=== PATIENT | male | born 1990 | race Asian ===

== ENCOUNTER 2017-03-06 18:07 | Emergency (ER) | payer SELFPAY ==
[2017-03-06] MEDS ORDERED: PREDNISONE 20 MG TABLET PO ONE (18:32)
[2017-03-06] MEDS ORDERED: LORATADINE 10 MG TABLET PO ONE (18:32)
[2017-03-06] MEDS ORDERED: FAMOTIDINE 20 MG TABLET PO ONE (18:32)
--- NOTE | 2017-03-06 18:37 | ER Document Report ---
HPI - HPI Patient complains to provider of: Allergic reaction Onset: Just prior to arrival Onset/Duration: Sudden Quality of pain: Burning Severity: Moderate Pain Level: 3 Context: Patient states he was bitten on his right foot multiple times by fire ants. Patient broke out in hives, EMS was called to the scene. Benadryl IV was given , but patient was brought to the emergency room by POV. Patient is sleepy, but denies difficulty breathing or swallowing. Patient and family state he has never had this kind of reaction in the past. Associated Symptoms: None Exacerbated by: Denies Relieved by: Denies Similar symptoms previously: No Recently seen / treated by doctor: No - ROS ROS below otherwise negative: Yes Systems Reviewed and Negative: Yes All other systems reviewed and negative - CONSTITUTIONAL Constitutional: DENIES: Fever - EENT EENT: DENIES: Congestion - NEURO Neurology: DENIES: Headache - CARDIOVASCULAR Cardiovascular: DENIES: Chest pain - RESPIRATORY Respiratory: DENIES: Trouble Breathing - GASTROINTESTINAL Gastrointestinal: DENIES: Abdominal Pain - URINARY Urinary: DENIES: Dysuria - MUSCULOSKELETAL Musculoskeletal: REPORTS: Extremity pain - Right foot - DERM Skin Color: Erythema Skin Problems: Rash Past Medical History - General Information source: Patient - Social History Smoking Status: Never Smoker Frequency of alcohol use: Occasional Drug Abuse: None Lives with: Family Family History: Reviewed & Not Pertinent Patient has suicidal ideation: No Patient has homicidal ideation: No - Medical History Medical History: Negative Surgical Hx: Negative Vertical Provider Document - CONSTITUTIONAL Agree With Documented VS: Yes Exam Limitations: No Limitations General Appearance: WD/WN, No Apparent Distress - INFECTION CONTROL TRAVEL OUTSIDE OF THE [place] IN LAST 30 DAYS: No - HEENT HEENT: Atraumatic, Normal ENT Exam, Normocephalic Notes: Patient groggy from IV Benadryl that was given by EMS. - NECK Neck: Normal Inspection, Supple - RESPIRATORY Respiratory: Breath Sounds Normal, No Respiratory Distress O2 Sat by Pulse Oximetry: 100 - CARDIOVASCULAR Cardiovascular: Regular Rate, Regular Rhythm - GI/ABDOMEN Gastrointestinal: Abdomen Soft, Abdomen Non-Tender - MUSCULOSKELETAL/EXTREMETIES Musculoskeletal/Extremeties: MAEW - NEURO Level of Consciousness: Awake, Appropriate - DERM Integumentary: Warm, Dry, Rash - Patient has multiple bites to right foot. Patient has scattered hives all over body. Course - Re-evaluation Re-evalutation: 03/06/17 19:13 Evaluated after medications given. Hives are greatly reduced and fading. Patient states he is no longer itching. - Vital Signs Vital signs: Temp Pulse Resp BP Pulse Ox 98.2 F 93 16 112/88 H 100 03/06/17 18:11 03/06/17 18:11 03/06/17 18:11 03/06/17 18:11 03/06/17 18:11 Discharge - Discharge Clinical Impression: Hives Fire ant bite Qualifiers: Encounter type: initial encounter Injury intent: accidental or unintentional Qualified Code(s): T63.421A - Toxic effect of venom of ants, accidental ( unintentional), initial encounter Condition: Good Disposition: HOME, SELF-CARE Additional Instructions: Begin prednisone taper tomorrow morning. You have already been given a dose for today in the emergency room. OTC Pepcid 20 mg every 12 hours for itching, you have been given a dose in the emergency room OTC Claritin or Zyrtec 10 mg daily for allergic reaction. May take Benadryl 1- 2 tabs every 4-6 hours as needed for breakthrough itching. Return to the emergency room if symptoms worsen or call 911 for EMS Prescriptions: Prednisone [Deltasone 10 mg Tablet] 10 mg PO ASDIR PRN #21 tablet PRN Reason:
[2017-03-06 19:45] VITALS: BP 113/74
== END 2017-03-06 19:45 | disposition home or self-care (01) ==
LOC: ER 18:07
DX: L50.9 Urticaria, unspecified (principal); T63.421A Toxic effect of venom of ants, accidental (unintentional), initial encounter
CPT/HCPCS: 99283; J7512

== ENCOUNTER 2017-03-31 10:31 | Emergency (ER) | payer SELFPAY ==
--- NOTE | 2017-03-31 11:21 | ER Document Report ---
ED Medical Screen (RME) - General Chief Complaint: Lower Abdominal Pain Stated Complaint: ABDOMINAL PAIN Time Seen by Provider: 03/31/17 11:18 Notes: A 7-year-old male patient seen here on 03/06/2017 after suffering fire ant bites to the right foot. He reports sometime after that he developed right lower quadrant abdominal pain going into the right testicle. He denies swelling. States it feels like the blood flow is not enough. There is no referral pain into the right flank. There is some discomfort with urination. I have greeted and performed a rapid initial assessment of this patient. A comprehensive ED assessment and evaluation of the patient, analysis of test results and completion of the medical decision making process will be conducted by additional ED providers. TRAVEL OUTSIDE OF THE [place] IN LAST 30 DAYS: No - Related Data Allergies/Adverse Reactions: No Known Allergies Allergy (Verified 03/31/17 11:08) Home Medications: Current Home Medications No Home Medications 03/31/17 [History] Past Medical History Renal/ Medical History: Denies: Hx Peritoneal Dialysis Physical Exam - Vital signs Vitals: Temp Pulse Resp BP Pulse Ox 98.1 F 73 18 147/75 H 100 03/31/17 11:10 03/31/17 11:10 03/31/17 11:10 03/31/17 11:10 03/31/17 11:10 Course - Vital Signs Vital signs: Temp Pulse Resp BP Pulse Ox 98.1 F 73 18 147/75 H 100 03/31/17 11:10 03/31/17 11:10 03/31/17 11:10 03/31/17 11:10 03/31/17 11:10
[2017-03-31 12:03] LABS: APPEARANCE,URINE SLIGHTLY-CLOUDY; BILIRUBIN,URINE NEGATIVE (NEGATIVE); GLUCOSE, URINE NEGATIVE (NEGATIVE); KETONES,URINE NEGATIVE (NEGATIVE); LEUKOCYTE ESTERASE,URINE NEGATIVE (NEGATIVE); NITRITE,URINE NEGATIVE (NEGATIVE); PROTEIN,URINE NEGATIVE (NEGATIVE); URINE SPECIFIC GRAVITY 1.016; UROBILINOGEN,URINE NEGATIVE mg/dL (<2.0)
--- NOTE | 2017-03-31 15:48 | ER Document Report ---
HPI - HPI Patient complains to provider of: Right groin/testicle pain Onset: Other Onset/Duration: Intermittent Quality of pain: Achy Severity: Moderate Pain Level: 3 Context: Patient states for the last couple weeks he has been having intermittent right groin pain which radiates down to his right testicle with prolonged standing. Denies dysuria, no fever, no nausea or vomiting. No previous history of similar symptoms in the past. Associated Symptoms: None Exacerbated by: Standing Relieved by: Supine, Sitting Similar symptoms previously: No Recently seen / treated by doctor: Yes - ER 3 weeks ago for fire ants bite - ROS ROS below otherwise negative: Yes Systems Reviewed and Negative: Yes All other systems reviewed and negative - CONSTITUTIONAL Constitutional: DENIES: Fever - EENT EENT: DENIES: Congestion - NEURO Neurology: DENIES: Headache - CARDIOVASCULAR Cardiovascular: DENIES: Chest pain - RESPIRATORY Respiratory: DENIES: Trouble Breathing - GASTROINTESTINAL Gastrointestinal: REPORTS: Abdominal Pain - Right lower/groin area. DENIES: Nausea, Patient vomiting, Diarrhea - URINARY Urinary: DENIES: Dysuria - MUSCULOSKELETAL Musculoskeletal: DENIES: Extremity pain - DERM Skin Color: Normal Skin Problems: None Past Medical History - General Information source: Patient - Social History Smoking Status: Never Smoker Frequency of alcohol use: Occasional Drug Abuse: None Lives with: Family Family History: Reviewed & Not Pertinent Patient has suicidal ideation: No Patient has homicidal ideation: No - Medical History Medical History: Negative Past Surgical History: Reports: Hx Orthopedic Surgery Vertical Provider Document - CONSTITUTIONAL Agree With Documented VS: Yes Exam Limitations: No Limitations General Appearance: WD/WN, No Apparent Distress - INFECTION CONTROL TRAVEL OUTSIDE OF THE [place] IN LAST 30 DAYS: No - HEENT HEENT: Atraumatic, Normocephalic - RESPIRATORY Respiratory: Breath Sounds Normal, No Respiratory Distress O2 Sat by Pulse Oximetry: 100 - CARDIOVASCULAR Cardiovascular: Regular Rate, Regular Rhythm - GI/ABDOMEN Gastrointestinal: Abdomen Soft, Abdomen Non-Tender, Normal Bowel Sounds - MUSCULOSKELETAL/EXTREMETIES Musculoskeletal/Extremeties: GRICELDA KNOX - NEURO Level of Consciousness: Awake, Alert, Appropriate - DERM Integumentary: Warm, Dry, No Rash Course - Re-evaluation Re-evalutation: 03/31/17 17:49 Ultrasound normal blood flow to both testicles, no hernia noted. You do have a small hydrocele. Results discussed with patient. - Vital Signs Vital signs: Temp Pulse Resp BP Pulse Ox 98.1 F 73 18 147/75 H 100 03/31/17 11:10 03/31/17 11:10 03/31/17 15:23 03/31/17 11:10 03/31/17 11:10 Discharge - Discharge Clinical Impression: Right groin pain, Testicular pain, unspecified Hydrocele Qualifiers: Hydrocele type: unspecified Qualified Code(s): N43.3 - Hydrocele, unspecified Condition: Good Disposition: HOME, SELF-CARE Instructions: Hydrocele ([facility]) Additional Instructions: Tylenol or Motrin as needed for discomfort follow up with your primary care provider if symptoms persist Wear briefs, not boxer underwear Return as needed Forms: Return to Work
--- NOTE | 2017-03-31 17:45 | RADIOLOGY REPORT (SQ) ---
EXAM DESCRIPTION: U/S SCROTUM W/DOPPLER COMPLETED DATE/TIME: 03/31/2017 5:21 pm REASON FOR STUDY: pain right groin/testicle COMPARISON: None. TECHNIQUE: Static and realtime rob scale imaging of the scrotum and testes. Selected color Doppler and spectral images recorded to document blood flow. LIMITATIONS: None. FINDINGS: RIGHT: TESTICLE: Normal size, 41 x 25 x 20 mm. Normal echotexture. Normal blood flow. No mass. EPIDIDYMIS: Normal, 7 x 9 x 7 mm. HYDROCELE OR VARICOCELE: No. HERNIA OR EXTRA-TESTICULAR MASS: No. OTHER: No other significant finding. LEFT: TESTICLE: Normal size, 38 x 28 x 19 mm. Normal echotexture. Normal blood flow. No mass. EPIDIDYMIS: Normal. , 9 x 7 x 8 mm. HYDROCELE OR VARICOCELE: There is a 10 x 20 x 8 mm fluid collection with some mobile debris within it in the left side of the scrotum. HERNIA OR EXTRA-TESTICULAR MASS: No. OTHER: No other significant finding. IMPRESSION: Small left hydrocele. The testes are intact with normal blood flow. TECHNICAL DOCUMENTATION: JOB ID: [id number] [employer]- All Rights Reserved
[2017-03-31 18:16] VITALS: BP 129/80
== END 2017-03-31 18:16 | disposition home or self-care (01) ==
LOC: ER 10:31
DX: N43.3 Hydrocele, unspecified (principal)
CPT/HCPCS: 76870; 81001; 93976; 99284